=== PATIENT | female | born 1945 | race African-American/Black ===

== ENCOUNTER 2020-07-13 18:07 | Emergency (ER) | payer MEDICAID, MEDICARE ==
[~2020-07-13] VITALS: Ht 162.6 cm; Wt 98.0 kg
[~2020-07-13 18:07] MED LIST: NO MEDICATIONS REPORTED
[2020-07-13 20:38] LABS: BASOPHILS % 0.6 % (0.0-2.0); EOSINOPHILS % 8.9 % (0.0-5.0); HEMATOCRIT. 39.2 % (36.0-48.0); MEAN CORPUSCULAR HEMOGLOBIN 29.4 pg (28.0-32.0); MEAN CORPUSCULAR VOLUME 88.9 fL (81.0-99.0); MEAN PLATELET VOLUME 8.9 fl (7.4-10.4); MONOCYTES % 8.2 % (2.0-8.0); NEUTROPHILS % 62.3 % (40.0-76.0); PLATELET 315 x1000/uL (130-400); RED BLOOD CELL COUNT 4.41 mill/uL (4.2-5.4); RED CELL DISTRIBUTION WIDTH 15.3 % (11.6-14.6)
[2020-07-13 20:42] LABS: CHLORIDE 106 mEq/L (98-107)
[2020-07-13] MEDS ORDERED: POTASSIUM CHLORIDE 20MEQ TABLET SR PO ONE (20:45)
[2020-07-13] MEDS ORDERED: PREDNISONE 20MG TABLET PO ONE (20:45)
[2020-07-13 22:01] VITALS: BP 169/81
== END 2020-07-13 22:09 | disposition home or self-care (01) ==
LOC: ER 18:07
DX: J45.909 Unspecified asthma, uncomplicated (principal); I10 Essential (primary) hypertension; Z79.899 Other long term (current) drug therapy
CPT/HCPCS: 36415; 71045; 80053; 83880; 84484; 85025; 93005; 99285